=== PATIENT | female | born 1960 | race Caucasian/White ===

== ENCOUNTER 2018-12-31 10:35 | Inpatient (IN) | payer MEDICARE, MEDICAID ==
[~2018-12-31] VITALS: Ht 167.6 cm; Wt 83.3 kg
[~2018-12-31 10:35] MED LIST: BUPR100T6 PO; DICY10CA3 PO; DULO60CA7 PO; LEVO137T2 PO; LORA-446 PO; OXYC5CAP2 PO; QUET400T4 PO; TOPI200T25 PO; XANAX; [UNRECOGNIZED DRUG - OTHER] PO; [UNRECOGNIZED DRUG - OTHER] PO
[2018-12-31] MEDS ORDERED: BISACODYL 10 MG SUPP PR PRN (12:00)
[2018-12-31] MEDS ORDERED: ONDANSETRON ODT 4 MG PO PRN (12:00)
[2018-12-31] MEDS ORDERED: DOCUSATE 100 MG CAPSULE PO PRN (12:00)
[2018-12-31] MEDS ORDERED: POLYETHYLENE GLYCOL 17 GM PACKET PO PRN (12:00)
[2018-12-31] MEDS ORDERED: ACETAMINOPHEN 325 MG TABLET PO PRN (12:00)
[2018-12-31] MEDS ORDERED: TRAZ-137 PO (12:58)
[2018-12-31] MEDS ORDERED: OMEG-14 PO (12:58)
[2018-12-31] MEDS ORDERED: ZIPR80CA2 PO (12:58)
[2018-12-31] MEDS ORDERED: CALC-451 PO (12:58)
[2018-12-31] MEDS ORDERED: KETO10TA PO (12:58)
[2018-12-31] MEDS ORDERED: OXYC5TAB3 PO (12:58)
[2018-12-31] MEDS ORDERED: MULT-658 PO (12:58)
[2018-12-31] MEDS ORDERED: ROPI1TAB2 PO (12:58)
[2018-12-31] MEDS ORDERED: GABA300C10 PO (12:58)
[2018-12-31] MEDS ORDERED: CARI350T PO (12:58)
[2018-12-31] MEDS ORDERED: MIRT15TA PO (12:58)
[2018-12-31 14:17] VITALS: BP 148/82
[2018-12-31] MEDS: NICOTINE 14MG/24 HR PATCH.TD24 TD SCH (14:55)
[2018-12-31] MEDS: POLYETHYLENE GLYCOL 17 GM PACKET PO SCH ×2 (14:55→20:48)
[2018-12-31] MEDS: GABAPENTIN 300 MG CAPSULE PO SCH ×3 (14:55→20:06)
[2018-12-31] MEDS ORDERED: ZIPRASIDONE 40MG CAPSULE PO SCH ×4 (15:00→21:00)
[2018-12-31 15:08] LABS: ALBUMIN 3.8 g/dL (3.4-5.0); ANION GAP 5 mmol/L (5-15); CALCIUM 8.8 mg/dL (8.5-10.1); CHLORIDE 108 mmol/L (98-107)
[2018-12-31 15:11] LABS: BASOPHILS # (AUTO) 0.03 x10^3/uL (0-0.1); BASOPHILS % (AUTO) 1 % (0-1); EOSINOPHILS # (AUTO) 0.12 x10^3/uL (0-0.4); EOSINOPHILS % (AUTO) 2 % (1-7); LYMPHOCYTES # (AUTO) 1.25 x10^3/uL (1-3.4); LYMPHOCYTES % (AUTO) 18 % (22-44); MD NO; MEAN CORPUSCULAR HEMOGLOBIN 33.5 pg (27.0-34.8); MEAN CORPUSCULAR HGB CONC 33.4 g/dL (32.4-35.8); MEAN CORPUSCULAR VOLUME 100.4 fL (80-100); MONOCYTES # (AUTO) 0.59 x10^3/uL (0.2-0.8); MONOCYTES % (AUTO) 9 % (2-9); NEUTROPHILS # (AUTO) 4.83 x10^3/uL (1.8-6.8); NEUTROPHILS % (AUTO) 71 % (42-75); PLATELET COUNT 241 x10^3/uL (130-400); RED BLOOD COUNT 4.23 x10^6/uL (3.82-5.3); RED CELL DISTRIBUTION WIDTH 12.2 % (9.6-15.2)
[2018-12-31 15:19] LABS: ALANINE AMINOTRANSFERASE 47 U/L (12-78); ALKALINE PHOSPHATASE 138 U/L (45-117); BILIRUBIN,TOTAL 0.3 mg/dL (0.2-1.0); CHOL/HDL RATIO 2.8; CHOLESTEROL, TOTAL 158 mg/dL (140-239); CREATININE 0.75 mg/dL (0.55-1.02); FREE T4 (FREE THYROXINE) 1.12 ng/dL (0.76-1.46); HDL CHOL % 36 % (28-40); HDL CHOLESTEROL (DIRECT) 57 mg/dL (40-60); LDL CHOLESTEROL,CALCULATED 77 mg/dL (54-169); LDL/HDL RATIO 1.4 (0.5-3.0); TOTAL PROTEIN 7.1 g/dL (6.4-8.2); TRIGLYCERIDES 121 mg/dL (50-200); VLDL CHOLESTEROL 24 mg/dL (0-25)
[2018-12-31] MEDS: TRIHEXYPHENIDYL 5 MG PO SCH ×3 (15:59→20:06)
[2018-12-31] MEDS: CARBAMAZEPINE XR 200 MG TABLET PO SCH ×2 (16:04→20:06)
[2018-12-31] MEDS: OXYcodone IR 5MG TABLET PO PRN ×2 (16:05→23:23)
[2018-12-31 19:31] VITALS: BP 164/88
[2018-12-31 19:56] VITALS: BP 157/86
[2019-01-01 00:57] LABS: MICROSCOPIC AUTO
[2019-01-01 00:58] LABS: CULTURE INDICATED? YES
[2019-01-01] MEDS ORDERED: LEVOTHYROXINE 137 MCG TABLET PO SCH (06:00)
[2019-01-01] MEDS: LEVOTHYROXINE 125 MCG TABLET PO SCH (06:03)
[2019-01-01] MEDS: OXYcodone IR 5MG TABLET PO PRN ×4 (06:19→23:11)
[2019-01-01 07:31] VITALS: BP 142/92
[2019-01-01] MEDS: POLYETHYLENE GLYCOL 17 GM PACKET PO SCH ×2 (08:11→20:05)
[2019-01-01] MEDS: GABAPENTIN 300 MG CAPSULE PO SCH ×3 (08:11→20:04)
[2019-01-01] MEDS: CARBAMAZEPINE XR 200 MG TABLET PO SCH ×2 (08:12→20:04)
[2019-01-01] MEDS: TRIHEXYPHENIDYL 5 MG PO SCH ×3 (08:12→20:04)
[2019-01-01] MEDS ORDERED: ZIPRASIDONE 40MG CAPSULE PO SCH ×2 (09:00→21:00)
[2019-01-01] MEDS: NICOTINE 14MG/24 HR PATCH.TD24 TD SCH (13:00)
[2019-01-01] MEDS ORDERED: ARTIFICIAL TEARS 15 DROP/ML BOTTLE EACHEYE PRN (17:00)
[2019-01-01] MEDS ORDERED: DICYCLOMINE 20 MG TABLET PO PRN (17:00)
[2019-01-01] MEDS: LORazepam 1MG TABLET PO PRN (17:00)
[2019-01-01 19:15] VITALS: BP 147/83
[2019-01-02] MEDS: OXYcodone IR 5MG TABLET PO PRN ×2 (03:50→09:58)
[2019-01-02] MEDS: LEVOTHYROXINE 125 MCG TABLET PO SCH (05:09)
[2019-01-02 07:07] VITALS: BP 136/84
[2019-01-02] MEDS: CARBAMAZEPINE XR 200 MG TABLET PO SCH (08:40)
[2019-01-02] MEDS: GABAPENTIN 300 MG CAPSULE PO SCH (08:40)
[2019-01-02] MEDS: TRIHEXYPHENIDYL 5 MG PO SCH (08:40)
[2019-01-02] MEDS: POLYETHYLENE GLYCOL 17 GM PACKET PO SCH (08:40)
[2019-01-02] MEDS: LORazepam 1MG TABLET PO PRN (08:40)
== END 2019-01-02 10:30 | disposition home or self-care (01) | DRG 885 ==
LOC: 3E 12:55
PROVIDERS: ADMIT Psychiatry & Neurology Psychosomatic Medicine; ATTEND Psychiatry & Neurology Psychosomatic Medicine
DX: F31.2 Bipolar disorder, current episode manic severe with psychotic features (principal); R45.851 Suicidal ideations; K62.5 Hemorrhage of anus and rectum; F43.10 Post-traumatic stress disorder, unspecified; F42.9 Obsessive-compulsive disorder, unspecified; D75.89 Other specified diseases of blood and blood-forming organs; E03.9 Hypothyroidism, unspecified; F60.3 Borderline personality disorder; G47.00 Insomnia, unspecified; G62.9 Polyneuropathy, unspecified; G89.29 Other chronic pain; I10 Essential (primary) hypertension; K59.09 Other constipation; M79.7 Fibromyalgia; R45.850 Homicidal ideations; Z72.0 Tobacco use; Z76.5 Malingerer [conscious simulation]; Z82.5 Family history of asthma and other chronic lower respiratory diseases
CPT/HCPCS: 36415; 71045; 74018; 80053; 80061; 81001; 82140; 82607; 84439; 84443; 85025; 87086; 93005; Q0177

== ENCOUNTER 2020-02-17 20:12 | Emergency (ER) | payer MEDICARE, MEDICAID ==
[~2020-02-17] VITALS: Ht 170.2 cm; Wt 86.4 kg
[~2020-02-17 20:12] MED LIST changes: +CALC-451 PO; +CARI350T PO; +GABA300C10 PO; +KETO10TA PO; +MIRT-37 PO; +MULT-658 PO; +OMEG-14 PO; +OXYC5TAB3 PO; +ROPI1TAB4 PO; +TRAZ-175 PO; +ZIPR80CA2 PO
--- NOTE | 2020-02-17 20:25 | NUR ---
BIB EMS FROM HOME FOR C/O HIGH BLOOD PRESSURE SINCE MONDAY WITH NO REPORTED HX OF SAME. PT. REPORTS HOME HEALTH RN NOTED B/P TO BE HIGH. PT. REPORTS INTERMITTENT OCONNELL'S AND SOB. PT. SPEAKING IN FULL SENTENCES WITH RAPID SPEECH; PT. REPORTS "I AM BIPOLAR AND I AM MANIC RIGHT NOW". DR. THOMAS IN TO EVAL PT. AND DISCUSS POC. CONTINUOUS PULSE OX, B/P, AND HEART MONITORS PLACED ON ARRIVAL. EKG IN PROCESS. CALL LIGHT IN REACH. ALL SAFETY MEASURES OBSERVED.
[2020-02-17 20:51] LABS: BASOPHILS % (AUTO) 1 % (0-1); EOSINOPHILS % (AUTO) 1 % (1-7); LYMPHOCYTES % (AUTO) 24 % (22-44); MEAN CORPUSCULAR HGB CONC 34.7 g/dL (32.4-35.8); MEAN PLATELET VOLUME 7.3 fL (7.4-10.4); MONOCYTES % (AUTO) 8 % (2-9); NEUTROPHILS % (AUTO) 67 % (42-75); PLATELET COUNT 260 x10^3/uL (130-400); RED BLOOD COUNT 4.01 x10^6/uL (3.82-5.3); RED CELL DISTRIBUTION WIDTH 11.9 % (9.6-15.2)
[2020-02-17 20:54] LABS: MD NO
[2020-02-17 21:01] LABS: ALBUMIN 3.9 g/dL (3.4-5.0); ANION GAP 7 mmol/L (5-15); CALCIUM 8.8 mg/dL (8.5-10.1); CHLORIDE 107 mmol/L (98-107); CREATININE 0.68 mg/dL (0.55-1.02)
--- NOTE | 2020-02-17 21:03 | NUR ---
VS UPDATED. PT. STATES "I NEED A CAB VOUCHER TO GET HOME, I AM READY TO GO." SOME LABS STILL PENDING. PT. VERBALIZED UNDERSTANDING OF NEED TO REMAIN IN ED UNTIL ALL TESTS ARE RESULTED.
[2020-02-17 21:37] VITALS: BP 121/75
== END 2020-02-17 21:40 | disposition home or self-care (01) ==
LOC: ED 21:34
DX: R06.00 Dyspnea, unspecified (principal); F41.1 Generalized anxiety disorder; I10 Essential (primary) hypertension; R07.9 Chest pain, unspecified; Z87.891 Personal history of nicotine dependence
CPT/HCPCS: 36415; 71045; 80048; 82040; 85025; 93005; 99285